=== PATIENT | male | born 1960 | race American Indian/Alaskan Native ===

== ENCOUNTER 2024-01-25 12:55 | Emergency (ER) | payer OTHER ==
[~2024-01-25] VITALS: Ht 175.3 cm; Wt 110.2 kg
[2024-01-25] MEDS ORDERED: Morphine Sulfate 4 MG/1 ML Injection IV ONE (15:05)
[2024-01-25] MEDS ORDERED: Ondansetron HCl 2 MG / ML 2ML Vial IV ONE (15:05)
[2024-01-25 16:24] LABS: BASOPHILS ABSOLUTE AUTO 0.03 K/mm3 (0.00-0.23); BASOPHILS PERCENT AUTO 0 % (0-2); EOSINOPHILS ABSOLUTE AUTO 0.31 K/mm3 (0.00-0.68); EOSINOPHILS PERCENT AUTO 3 % (0-6); Hematocrit 43.5 % (37.0-53.0); Hemoglobin 14.9 g/dL (13.5-17.5); IMMATURE GRAN ABSOLUTE AUTO 0.05 K/mm3 (0.00-0.10); IMMATURE GRAN PERCENT AUTO 1 % (0-1); LYMPHOCYTES ABSOLUTE AUTO 1.29 K/mm3 (0.84-5.20); LYMPHOCYTES PERCENT AUTO 13 % (21-46); MONOCYTES ABSOLUTE AUTO 0.53 K/mm3 (0.16-1.47); MONOCYTES PERCENT AUTO 5 % (4-13); Mean Corpuscular HGB 32.1 pg (26.0-34.0); Mean Corpuscular HGB Conc 34.3 g/dL (31.5-36.5); Mean Corpuscular Volume 94 fL (80-100); Mean Platelet Volume 9.8 fL (9.1-12.4); NEUTROPHILS ABSOLUTE AUTO 7.93 K/mm3 (1.96-9.15); NEUTROPHILS PERCENT AUTO 78 % (41-73); Platelet Count 349 K/mm3 (150-400); RDW Coefficient Variation 12.8 % (11.7-14.2); RDW Standard Deviation 43.8 fL (35.1-46.3); Red Blood Cell Count 4.64 M/mm3 (4.30-5.90); White Blood Cell Count 10.14 K/mm3 (4.00-11.30)
[2024-01-25 16:55] LABS: Magnesium, Blood 2.6 mg/dL (1.6-2.4)
[2024-01-25 17:07] LABS: Albumin, Blood 4.1 g/dL (3.4-5.0); Bilirubin, Total 0.4 mg/dL (0.1-1.0); Bun/Creatinine Ratio 19.1 (12.0-20.0); Calcium, Blood 10.1 mg/dL (8.5-10.1); Creatinine, Blood 2.3 mg/dL (0.60-1.20); Globulin, Blood 4.3 g/dL (2.2-4.0); Potassium, Blood 5.1 mmol/L (3.5-5.5); Total Protein, Blood 8.4 g/dL (6.4-8.2)
[2024-01-25 17:30] VITALS: BP 99/58
== END 2024-01-25 17:41 | disposition home or self-care (01) ==
LOC: ER 12:55
PROVIDERS: Emergency Medicine
DX: K64.5 Perianal venous thrombosis (principal); Z88.6 Allergy status to analgesic agent; Z88.8 Allergy status to other drugs, medicaments and biological substances
CPT/HCPCS: 46083; 74176; 80053; 83690; 83735; 85025; 96374-59; 96375-59; 99283-25; J2270; J2405

== ENCOUNTER 2024-02-01 11:14 | Inpatient (IN) | payer OTHER ==
[~2024-02-01] VITALS: Ht 175.3 cm; Wt 107.4 kg
[2024-02-01] MEDS ORDERED: NS 1,000 ML IV SCH ×2 (12:15→20:25)
[2024-02-01 13:23] LABS: BASOPHILS ABSOLUTE AUTO 0.03 K/mm3 (0.00-0.23); BASOPHILS PERCENT AUTO 0 % (0-2); EOSINOPHILS ABSOLUTE AUTO 0.26 K/mm3 (0.00-0.68); EOSINOPHILS PERCENT AUTO 2 % (0-6); Hematocrit 40.9 % (37.0-53.0); Hemoglobin 14.5 g/dL (13.5-17.5); IMMATURE GRAN ABSOLUTE AUTO 0.09 K/mm3 (0.00-0.10); IMMATURE GRAN PERCENT AUTO 1 % (0-1); LYMPHOCYTES ABSOLUTE AUTO 1.54 K/mm3 (0.84-5.20); LYMPHOCYTES PERCENT AUTO 13 % (21-46); MONOCYTES ABSOLUTE AUTO 0.82 K/mm3 (0.16-1.47); MONOCYTES PERCENT AUTO 7 % (4-13); Mean Corpuscular HGB 32.5 pg (26.0-34.0); Mean Corpuscular HGB Conc 35.5 g/dL (31.5-36.5); Mean Corpuscular Volume 92 fL (80-100); NEUTROPHILS ABSOLUTE AUTO 9.47 K/mm3 (1.96-9.15); NEUTROPHILS PERCENT AUTO 78 % (41-73); Platelet Count 393 K/mm3 (150-400); RDW Coefficient Variation 12.8 % (11.7-14.2); RDW Standard Deviation 42.5 fL (35.1-46.3); Red Blood Cell Count 4.46 M/mm3 (4.30-5.90); White Blood Cell Count 12.21 K/mm3 (4.00-11.30)
[2024-02-01 13:46] LABS: Albumin/Globulin Ratio 0.9 (0.8-1.8); Bilirubin, Total 0.4 mg/dL (0.1-1.0); Bun/Creatinine Ratio 14.2 (12.0-20.0); Calcium, Blood 10.5 mg/dL (8.5-10.1); Creatinine, Blood 3.88 mg/dL (0.60-1.20); Globulin, Blood 4.3 g/dL (2.2-4.0); Magnesium, Blood 2.1 mg/dL (1.6-2.4); Potassium, Blood 4.6 mmol/L (3.5-5.5); Total Protein, Blood 8.3 g/dL (6.4-8.2)
[2024-02-01] MEDS ORDERED: Bisacodyl 10 MG Supp PR ONE (14:15)
[2024-02-01] MEDS ORDERED: Tamsulosin HCl 0.4 MG Cap PO ONE (14:25)
[2024-02-01] MEDS ORDERED: AIRSUPRA 90-810.7 GM INH ×2 (14:39)
[2024-02-01] MEDS ORDERED: GEMFIBROZIL600 MG PO ×2 (14:40)
[2024-02-01] MEDS ORDERED: TRAM50 PO ×2 (14:40)
[2024-02-01] MEDS ORDERED: NEURONTIN300 MG PO ×2 (14:40)
[2024-02-01] MEDS ORDERED: ROSUVASTATIN CA10 MG PO ×2 (14:40)
[2024-02-01] MEDS ORDERED: EPINEPHRIN0.3 MG/0.1 IM ×2 (14:41)
[2024-02-01] MEDS ORDERED: SYNTHROID50 MC1 PO ×2 (14:41)
[2024-02-01] MEDS ORDERED: FAMO20 PO ×2 (14:41)
[2024-02-01] MEDS ORDERED: LORA10ER PO ×2 (14:41)
[2024-02-01] MEDS ORDERED: HYDCHL12.5 PO ×2 (14:42)
[2024-02-01] MEDS ORDERED: OLMESARTAN-HCT1 EAC5 PO ×2 (14:42)
[2024-02-01] MEDS ORDERED: IPRAT-ALBUT 0.5-3 ML INH ×2 (14:42)
[2024-02-01] MEDS ORDERED: ERGO50000 PO ×2 (14:43)
[2024-02-01] MEDS ORDERED: Ondansetron 4 MG TAB PO PRN (16:50)
[2024-02-01] MEDS ORDERED: FLU VACC TS2024-25(6MOS UP)/PF 45 MCG/0.5 ML SYRINGE IM SCH (16:55)
[2024-02-01] MEDS ORDERED: Bisacodyl 10 MG Supp PR PRN (16:55)
[2024-02-01] MEDS ORDERED: Ondansetron HCl 2 MG / ML 2ML Vial IV PRN (16:55)
[2024-02-01] MEDS ORDERED: Metoclopramide HCl 5MG / ML 2ML Vial IV PRN (16:55)
[2024-02-01] MEDS ORDERED: TraZODone HCl 50 MG Tab PO PRN (16:55)
[2024-02-01] MEDS ORDERED: Ipratropium/Albuterol SulF 2.5-0.5MG/3 ML Amp INH SCH ×2 (17:00→17:10)
[2024-02-01] MEDS ORDERED: TraMADol HCl 50 MG Tab PO PRN (17:00)
[2024-02-01] MEDS ORDERED: Magnesium Hydroxide Conc 10 ML UDC PO PRN (17:00)
[2024-02-01] MEDS ORDERED: Gabapentin 300 MG Cap PO PRN (17:05)
[2024-02-01] MEDS ORDERED: Mometasone/Formoterol MDI 100/5 mcg 13 GM INH SCH (17:15)
[2024-02-01 17:36] LABS: Source, Urine Clean Catch
[2024-02-01 17:44] LABS: Appearance, Urine Hazy (Clear); Bilirubin, Urine Neg (Neg); Blood, Urine 3+ (Neg); Glucose Qualitative, Urine Neg (Neg); Ketones, Urine Neg (Neg); Leukocyte Esterase, Urine 3+ (Neg); Nitrite, Urine Neg (Neg); Protein, Urine 2+ (Neg); Urobilinogen, Urine NORM (Normal)
[2024-02-01 17:52] LABS: Color, Urine Pale Yellow (P-Yellow)
[2024-02-01 17:53] LABS: Bacteria Mod /hpf; Squamous Epithelial Cells Rare /hpf (Few); White Blood Cells, Urine TNTC /hpf (0-5)
[2024-02-01] MEDS ORDERED: NS 1,000 ML IV ONE (19:00)
--- NOTE | 2024-02-01 20:00 | NUR ---
NEW ADMIT. PATIENT ADMITTED TO ROOM 331 FROM THE ER. PATIENT ARRIVED TO ROOM VIA GURNEY AND 1P TRANSPORT. PATIENT ABLE TO TRANSFER TO BED FROM c 1 PERSON ASSIST. PATIENT ARRIVED TO ROOM c 1 PERSONAL BELONGINGS BAG. THIS RN TO ASSUME PATIENT CARE.
[2024-02-01 20:05] VITALS: BP 108/67
[2024-02-01] MEDS ORDERED: Lactulose 20 GM/30 ML UDC PO SCH (21:00)
[2024-02-01] MEDS ORDERED: CefTRIAXone Sodium 1,000 MG in NS 100 ML IV SCH (21:00)
[2024-02-01] MEDS ORDERED: Docusate Sodium 100 MG Cap PO SCH (21:00)
[2024-02-01] MEDS ORDERED: Sennosides 8.6 MG Tab PO SCH (21:00)
--- NOTE | 2024-02-02 02:04 | NUR ---
HOSPITALIST CONTACTED. DR. SÁNCHEZ NOTIFIED OF PATIENT HAVING BLOOD IN STOOL-PATIENT ALSO HAD PROCEDURE DONE ON 01/[address] SÁNCHEZ ADVISED TO CONTINUE TO MONITOR BLOOD IN STOOLS AND IF AMOUNT OF BLOOD IN STOOL INCREASES TO NOTIFY DOCTOR
--- NOTE | 2024-02-02 04:29 | NUR ---
SHIFT SUMMARY. PATIENT IS A&OX4, FORGETFUL AT TIMES. PATIENT ADMITTED FOR MARKO. PATIENTS SKIN IS INTACT. PATIENT IS ON RA. PATIENT UP TO THE BSC WITH 1P ASSIST. PATIENT RECEIVED A SUPPOSITORY IN THE ER AND HAS HAD MULTIPLE BOWEL MOVEMENTS WITH FORMED AND LOOSE STOOLS-BLOOD IS NOTED IN STOOL-HOSPITALIST NOTIFIED; PATIENT HAS HX OF HEMORROHOIDS BOTH EXTERNAL AND INTERNAL WITH A PROCEDURE DONE ON 01/25/24-SEE PREVIOUS NOTE. PATIENT HAS URGENCY WITH BOTH BOWEL AND BLADDER THAT WAS NOTED LATER IN THE SHIFT. PATIENT CALLS APPROPRIATELY AND IS ABLE TO MAKE HIS NEEDS KNOWN. BED IS LOCKED IN THE LOWEST POSITION WITH CALL LIGHT IN REACH. CARE IS ONGOING.
[2024-02-02 05:26] VITALS: BP 119/75
[2024-02-02] MEDS ORDERED: Levothyroxine Sodium 0.05 MG Tab PO SCH (06:00)
[2024-02-02 06:12] LABS: BASOPHILS ABSOLUTE AUTO 0.03 K/mm3 (0.00-0.23); BASOPHILS PERCENT AUTO 1 % (0-2); EOSINOPHILS ABSOLUTE AUTO 0.23 K/mm3 (0.00-0.68); EOSINOPHILS PERCENT AUTO 4 % (0-6); Hematocrit 38.5 % (37.0-53.0); Hemoglobin 13.2 g/dL (13.5-17.5); IMMATURE GRAN ABSOLUTE AUTO 0.04 K/mm3 (0.00-0.10); IMMATURE GRAN PERCENT AUTO 1 % (0-1); LYMPHOCYTES PERCENT AUTO 27 % (21-46); MONOCYTES PERCENT AUTO 8 % (4-13); Mean Corpuscular HGB 32.2 pg (26.0-34.0); Mean Corpuscular HGB Conc 34.3 g/dL (31.5-36.5); Mean Corpuscular Volume 94 fL (80-100); Mean Platelet Volume 9.8 fL (9.1-12.4); NEUTROPHILS ABSOLUTE AUTO 3.85 K/mm3 (1.96-9.15); NEUTROPHILS PERCENT AUTO 61 % (41-73); Platelet Count 328 K/mm3 (150-400); RDW Standard Deviation 44.5 fL (35.1-46.3); White Blood Cell Count 6.35 K/mm3 (4.00-11.30)
[2024-02-02 06:48] LABS: Albumin, Blood 3.6 g/dL (3.4-5.0); Bilirubin, Total 0.3 mg/dL (0.1-1.0); Bun/Creatinine Ratio 18.9 (12.0-20.0); Calcium, Blood 9.4 mg/dL (8.5-10.1); Creatinine, Blood 2.75 mg/dL (0.60-1.20); Globulin, Blood 3.6 g/dL (2.2-4.0); Magnesium, Blood 2.2 mg/dL (1.6-2.4); Phosphorus, Blood 3.7 mg/dL (2.5-4.9); Potassium, Blood 3.8 mmol/L (3.5-5.5); Thyroid Stimulating Hormone 2.8 uIU/mL (0.360-4.800); Total Protein, Blood 7.2 g/dL (6.4-8.2); Uric Acid, Blood 8.2 mg/dL (3.5-7.2)
[2024-02-02 07:23] VITALS: BP 97/46
[2024-02-02] MEDS ORDERED: Famotidine 20 MG Tab PO SCH (09:00)
[2024-02-02] MEDS ORDERED: Loratadine 10 MG Tab PO SCH (09:00)
[2024-02-02] MEDS ORDERED: Gemfibrozil 600 MG Tab PO SCH (09:00)
[2024-02-02] MEDS ORDERED: Heparin Sodium 5000 Units/ML 1ML MDV SC SCH (09:00)
[2024-02-02] MEDS ORDERED: Rosuvastatin Calcium 10 MG Tab PO SCH (09:00)
[2024-02-02 14:39] VITALS: BP 114/58
--- NOTE | 2024-02-02 17:13 | NUR ---
PATIENT DOES NOT FEEL HE IS RETAINING URINE OR BOWEL, BM 6 TIMES TODAY, LOOSE, GOOD APPETITE. 24H URINE STARTED, PATEINT NOT HAVING BRIGHT RED LUCÍA BLOOD FROM HIS RECETUMN ANYMORE, ALERT AND ORIENTED X4, TO STAY ANOTHER NIGHT TO MONITOR KIDNEY VALUES, IVF INFUSING, CLEARLY MAKES NEEDS KNWON, CALL LIGHT WITH IN REACH, WILL RELAY TO PM RN
[2024-02-02 19:44] VITALS: BP 109/72
[2024-02-03 03:40] VITALS: BP 118/78
--- NOTE | 2024-02-03 05:21 | NUR ---
SHIFT SUMMARY PATIENT IS A&OX4 AND 1P ASSIST TO THE BSC. NO BLOOD NOTED IN PATIENTS STOOL THIS SHIFT. PATIENT REPORTS PAIN-MEDICATED PER ORDERS X2. PATIENT IS PLEASANT AND COOPERATIVE WITH CARE. PATIENT HAS IV INFUSING PER ORDER. 24 HOUR URINE IS CURRENTLY IN PROGRESS-ENDS 02/03/24 AT 1550. PLAN IS FOR POSSIBLE DISCHARGE TODAY-02/03/24. PATIENT CALLS APPROPRIATELY AND IS ABLE TO MAKE HIS NEEDS KNOWN. BED IS LOCKED IN THE LOWEST POSITION WITH CALL LIGHT IN REACH. CARE IS ONGOING.
[2024-02-03 06:37] LABS: Hematocrit 37.1 % (37.0-53.0); Hemoglobin 12.6 g/dL (13.5-17.5)
[2024-02-03 06:58] LABS: Albumin, Blood 3.6 g/dL (3.4-5.0); Anion Gap 13 mmol/L (3-11); Blood Urea Nitrogen 41 mg/dL (8-24); Bun/Creatinine Ratio 17.7 (12.0-20.0); CO2, Blood 24 mmol/L (21-32); Calcium, Blood 9.1 mg/dL (8.5-10.1); Chloride, Blood 105 mmol/L (98-108); Creatinine, Blood 2.31 mg/dL (0.60-1.20); Glomerular Filtration Rate 31 (60-); Glucose, Blood 108 mg/dL (70-99); Magnesium, Blood 2.3 mg/dL (1.6-2.4); Phosphorus, Blood 3.6 mg/dL (2.5-4.9); Potassium, Blood 3.6 mmol/L (3.5-5.5); Sodium, Blood 138 mmol/L (136-145)
[2024-02-03] MEDS ORDERED: NS 1,000 ML IV SCH (07:10)
[2024-02-03 07:31] VITALS: BP 111/71
[2024-02-03] MEDS ORDERED: TraMADol HCl 50 MG Tab PO PRN (09:50)
--- NOTE | 2024-02-03 10:25 | NUR ---
PATIENT TALKING AND VISITING ALL MORNING, PLEASANT TO CARE, CLEARLY MAKES NEEDS KNOWN
[2024-02-03] MEDS ORDERED: Gabapentin 300 MG Cap PO PRN (12:00)
[2024-02-03] MEDS ORDERED: SENN187 PO ×2 (13:26)
[2024-02-03] MEDS ORDERED: MIRALAX17 GM PO ×2 (13:26)
--- NOTE | 2024-02-03 13:50 | NUR ---
PATIENT TO BE DISCHARGED HOME AFTER 24 HOUR URINE COLLECTION FINISHED, RIDE ARRANGED AT 1800, ALERT AND ORIENTED X4, CALL LIGHT WITH IN REACH
[2024-02-03 15:08] VITALS: BP 110/71
--- NOTE | 2024-02-03 18:26 | NUR ---
DISCHARGED HOME 1745, TRANSPORTATION SCHEDULED, PATIENT STATED UNDERSTANDING OF INSTRUCTIONS, FOLLOW UP NEEDS, AND MEDICATION. PATIENT DENIED FURTHER QUESTIONS
[2024-02-04] MEDS ORDERED: Famotidine 20 MG Tab PO SCH (06:00)
[2024-02-04] MEDS ORDERED: Tamsulosin HCl 0.4 MG Cap PO SCH (09:00)
== END 2024-02-03 17:44 | disposition home or self-care (01) | DRG 683 ==
LOC: ER 11:14 → ERHOLD 16:49 → MEDS 16:49
PROVIDERS: Internal Medicine Nephrology; Physician Assistant; ADMIT Internal Medicine
DX: N17.9 Acute kidney failure, unspecified (principal); E87.1 Hypo-osmolality and hyponatremia; R33.9 Retention of urine, unspecified; N18.4 Chronic kidney disease, stage 4 (severe); K59.00 Constipation, unspecified; K57.30 Diverticulosis of large intestine without perforation or abscess without bleeding; I12.9 Hypertensive chronic kidney disease with stage 1 through stage 4 chronic kidney disease, or unspecified chronic kidney disease; E78.5 Hyperlipidemia, unspecified; K40.90 Unilateral inguinal hernia, without obstruction or gangrene, not specified as recurrent; E11.22 Type 2 diabetes mellitus with diabetic chronic kidney disease; D63.1 Anemia in chronic kidney disease; E83.52 Hypercalcemia; F17.210 Nicotine dependence, cigarettes, uncomplicated; J44.9 Chronic obstructive pulmonary disease, unspecified; K64.5 Perianal venous thrombosis; Z90.49 Acquired absence of other specified parts of digestive tract; Z98.890 Other specified postprocedural states; Z79.899 Other long term (current) drug therapy; Z79.890 Hormone replacement therapy; Z88.8 Allergy status to other drugs, medicaments and biological substances; Z79.2 Long term (current) use of antibiotics
CPT/HCPCS: 36415; 51798; 74177; 80053; 80069; 81001; 82533; 82550; 82947; 83735; 84100; 84443; 84550; 85014; 85018; 85025; 87086; 93005; 93010; 94640; 94664; 94760; 96360-59; 97110; 97161; 99285-25; A9270; G0103; J0696; J1644; J7030; Q9967

== ENCOUNTER → 2024-02-01 | Outpatient (CLI) | payer OTHER ==
[~2024-02-01] MED LIST: AIRSUPRA 90-810.7 GM INH; EPINEPHRIN0.3 MG/0.1 IM; ERGO50000 PO; FAMO20 PO; GEMFIBROZIL600 MG PO; HYDCHL12.5 PO; IPRAT-ALBUT 0.5-3 ML INH; LORA10ER PO; MIRALAX17 GM PO; NEURONTIN300 MG PO; OLMESARTAN-HCT1 EAC5 PO; ROSUVASTATIN CA10 MG PO; SENN187 PO; SYNTHROID50 MC1 PO; TRAM50 PO
== END ==
LOC: LAB SHORT 10:00 → LAB 10:00
DX: R31.29 Other microscopic hematuria (principal)
CPT/HCPCS: 87086